=== PATIENT | female | born 2000 | race Caucasian/White ===

== ENCOUNTER → 2021-12-04 | Outpatient (CLI) | payer OTHER ==
--- NOTE | 2021-12-04 10:12 | Diagnostic Imaging Report ---
EXAMINATION: Lumbosacral spine, 2 or 3 views. HISTORY: Back pain. Fall off horse. COMPARISON: None available. FINDINGS: There is no acute fracture or dislocation of the lumbar spine. Alignment is anatomic. The vertebral body heights are well maintained. No significant degenerative changes are present in the lumbar spine. The included soft tissues are unremarkable. IMPRESSION: No acute fracture or dislocation in the lumbar spine. Dictated by: Dictated on workstation # [id number]
--- NOTE | 2021-12-04 10:12 | Diagnostic Imaging Report ---
INDICATION: Fall, pain. COMPARISON: None available. TECHNIQUE: Three radiographs of the right elbow dated 12/04/2021. FINDINGS: No acute fracture or dislocation. No destructive osseous process. Joint spaces are well-maintained. No elbow joint effusion. No suspicious radiopaque foreign body. IMPRESSION: No acute osseous abnormality. Dictated by: Dictated on workstation # [id number]
--- NOTE | 2021-12-04 10:13 | Diagnostic Imaging Report ---
CLINICAL HISTORY: Fall. Left-sided pelvic pain. COMPARISON: None. TECHNIQUE: Two views of the left hip. FINDINGS: There is no acute fracture or dislocation of the left hip. Alignment is anatomic. The imaged joint spaces are preserved. No focal osseous lesions are seen. An IUD is in place. IMPRESSION: No acute fracture or dislocation in the left hip. Dictated by: Dictated on workstation # [id number]
== END ==
LOC: RAD 09:37
PROVIDERS: ATTEND Nurse Practitioner Community Health
DX: M25.552 Pain in left hip (principal); M54.50 Low back pain, unspecified; M25.521 Pain in right elbow; V80.010A Animal-rider injured by fall from or being thrown from horse in noncollision accident, initial encounter
CPT/HCPCS: 72100; 73080; 73502